=== PATIENT | female | born 1985 | race Asian ===

== ENCOUNTER → 2023-06-15 12:08 | Outpatient (REF) | payer OTHER, SELFPAY | LOC: CLAB 12:08 | PROVIDERS: ATTENDING PHYSICIAN Physician Assistant Medical | DX: R30.0 Dysuria (principal) | CPT/HCPCS: 87086 ==

== ENCOUNTER → 2023-07-07 05:43 | Day surgery (SDC) | payer OTHER, SELFPAY ==
[2023-07-07] VITALS (21 sets, daily range): BP systolic 76–112; BP diastolic 45–68; BMI 25.1
[2023-07-07 02:00] LABS: % Basophils 0.2 % (0-2); % Eosinophils 0.3 % (0-6); % Immature Granulocytes 0.4 % (0-0.5); % Lymphocytes 8.5 % (20.5-51.1); % Monocytes 3.5 % (1.7-9.3); % Neutrophils 87.1 % (42.2-75.2); Absolute Eosinophils 0.1 10^3/uL (0-0.7); Absolute Immature Granulocytes 0.1 10^3/uL (0-0.05); Absolute Lymphocytes 1.5 10^3/uL (1.2-3.4); Absolute Monocytes 0.6 10^3/uL (0.1-0.6); Absolute Neutrophils 14.9 10^3/uL (1.4-6.5); Hematocrit 29.8 % (37.0-47.0); Hemoglobin 9.8 g/dL (12.0-16.0); Mean Corp Hgb Conc. 32.9 g/dL (33.0-37.0); Mean Corpuscular Hgb 20.6 pg (27.0-31.0); Mean Corpuscular Volume 62.6 fL (81.0-99.0); Mean Platelet Volume 10.9 fL (7.4-10.4); Nucleated Red Blood Cells % 0 %; Platelet Count 267 10^3/uL (130-400); Red Blood Cell Count 4.76 10^6/uL (4.20-5.40); Red Cell Dist. Width 15.5 % (11.5-14.5); White Blood Cell Count 17.1 10^3/uL (4.8-10.8)
[2023-07-07] MEDS: NSS 500 IV (02:03)
[2023-07-07] MEDS: ZOFRAN 4 MG IV (02:03)
[2023-07-07 02:12] LABS: ALT (SGPT) 17 U/L (0-35); AST (SGOT) 21 U/L (14-36); Albumin 4.3 g/dl (3.5-5.0); Alkaline Phosphatase 66 U/L (38-126); Blood Urea Nitrogen 15 mg/dl (7-17); Calcium 9.3 mg/dl (8.4-10.2); Carbon Dioxide 18 mmol/L (22-30); Chloride 106 mmol/L (98-107); Estimated Creatinine Clearance 85 ml/min; Glucose 127 mg/dl (70-99); Potassium 4.3 mmol/L (3.5-5.1); Sodium 133 mmol/L (135-145); Total Bilirubin 0.4 mg/dl (0.2-1.3); Total Protein 7.1 g/dl (6.3-8.2); eGFR > 60.00
--- NOTE | 2023-07-07 02:28 | ED.GENMED ---
History of Present Illness
General
Chief Complaint: Problems
Source: patient
Exam Limitations: none
Time Seen by Provider: 07/07/23 01:44
Nursing documentation reviewed up to this point in time: agreed with
Travel History
Have you had any contact with someone who has COVID-19?: No
Do you have any symptoms of coronavirus? Fever > 100 degrees, chills, cough, shortness of breath, sore throat, loss of taste or smell, muscle aches, or headache?: No
History of Present Illness
History of Present Illness:
Patient, G3, P1, presents to ED secondary to persistent vaginal bleeding, after receiving Cytotec pill this afternoon after recent ultrasound revealed stillborn baby with gestational age of 6 weeks. Patient had spontaneous miscarriage 4 months
prior. An approximately 2 hours after taking a pill, patient started to have severe abdominal cramping along with passage of clots along with bright red blood. Patient was advised to consider coming to ED by her OB physician, if her bleeding was
severe. As she stood up to come to ED, she felt lightheaded and passed out for couple minutes. Denies injuries, as she was assisted by her immediately. Patient also reports shortness of breath at home, which now has resolved. Patient
does have history of thalassemia.
Past History
Past History
ED Past Medical History: None; Negative Asthma, HTN, Hypercholesterolemia or NIDDM
ED Past Surgical History: None
Social History
Tobacco: Non-smoker
Alcohol: None
Personal:
Living: with family
Review of Systems
Review of Systems
Allergies reviewed?: Yes
All Other Systems: ROS reviewed and negative except as documented in HPI and ROS
Constitutional: Reports no symptoms
EENT: Reports no symptoms
Respiratory: Reports no symptoms
Cardiac: Reports syncope
ABD/GI: Reports abdominal pain and nausea
: Reports bleeding
Musculoskeletal: Reports no symptoms
Skin: Reports no symptoms
Neurological: Reports dizzy
Phy Exam
Physical Exam
Physical Exam:
Physical Exam
General: moderate distress, not acutely ill. afebrile
Head: nc/at. eomi
Neck: supple. no meningeal signs.
Heart: s1/s2 regular rate and rhythm, no murmur. equal radial pulses.
Lungs: no acute respiratory distress. clear bilaterally
Abdomen: normal bowel sounds. diffuse mild tenderness to palpation, without distention.
: (MARITZA Martinez, at bedside): large blood clots noted and removed with forcep
Neuro: alert and oriented. no focal neurological deficits
Skin: no rash
Psychiatric: well kept. interactive and cooperative
Extremities: no edema. no calf tenderness.
Course
Orders/Labs/Results
Orders:
Orders
07/07/23 01:36
Type+Screen Urgent
Complete Blood Count/With Diff Urgent
Comprehensive Metabolic Panel Urgent
07/07/23 01:57
0.9% Sodium Chloride 500 ml [Nss] 500 ml IV BOLUS
Ondansetron Injectable [Zofran] 4 mg IV NOW STA
07/07/23 02:48
Morphine Sulfate 2 mg IV NOW STA
07/07/23 03:44
Hemoglobin Urgent
Comment: recheck
07/07/23 04:03
Fentanyl Citrate/Pf [Sublimaze] 50 mcg IV NOW STA
07/07/23 04:41
* Blood Bank Products Urgent
Blood Bank Products: *Packed RBC Leuko(PRBC's)
Quantity: 1
Transfuse Today: Yes
Reason: Bleeding
IV Insert/Care/Rem.- Treatment PRN
07/07/23 05:07
HYDROmorphone [Dilaudid] 0.25 mg IV PACU-Q5MPRN PRN
HYDROmorphone [Dilaudid] 0.5 mg IV PACU-Q5MPRN PRN
Meperidine [Demerol] 12.5 mg IV PACU-Q5MPRN PRN
Ondansetron Injectable [Zofran] 4 mg IV PACU-ONCEPRN PRN
Prochlorperazine [Compazine] 5 mg IV PACU-ONCEPRN PRN
Notify MD As Directed
Notify physician if: for SDS patients with known or suspected sleep obstructive sleep apnea, monitor in the
PACU.
Notify MD for any apneic/desaturation episodes
O2 Therapy [RESP] Urgent
Titrate/Wean O2 to maintain O2 sat greater than (%): 92
Special Instructions: -Provide supplemental oxygen to achieve O2 sat of 92% or greater.
-After 15 min, may wean O2 and discontinue if patient is able to maintain O2 sat of 92%
or greater during recovery period.
If patient is a discharge home, without oxygen therapy, notify anestheiologist if
unable to maintain O2 SAT of 92% or greater on room air for MD clearance.
07/07/23 05:15
Normosol (Mult Electrolytes) [Normosol-R] 1,000 ml IV PER PROTOCOL
07/07/23 05:27
Dexamethasone Sod Phosphate [Decadron] 20 mg .ROUTE .STK-MED ONE
Fentanyl Citrate/Pf [Sublimaze] 100 mcg .ROUTE .STK-MED ONE
Lidocaine HCl/Pf [Xylocaine-Mpf 1% Vial] 50 mg .ROUTE .STK-MED ONE
Midazolam HCl [Versed] 2 mg .ROUTE .STK-MED ONE
Ondansetron Injectable [Zofran] 4 mg .ROUTE .STK-MED ONE
Propofol [Diprivan] 20 ml .ROUTE .STK-MED
07/07/23 06:00
Flush (0.9% Sodium Chloride) [Flush (Nss)] See Dose Instructions IV PER PROTOCOL
Abnormal Lab Results
07/07/23 07/07/23
01:36 03:44
WBC 17.1 H 10^3/uL
(4.8-10.8)
Hgb 9.8 L g/dL 7.8 L D g/dL
(12.0-16.0) (12.0-16.0)
Hct 29.8 L %
(37.0-47.0)
MCV 62.6 L fL
(81.0-99.0)
MCH 20.6 L pg
(27.0-31.0)
MCHC 32.9 L g/dL
(33.0-37.0)
RDW 15.5 H %
(11.5-14.5)
MPV 10.9 H fL
(7.4-10.4)
Abs Immat Gran (auto) 0.1 H 10^3/uL
(0-0.05)
Absolute Neuts (auto) 14.9 H 10^3/uL
(1.4-6.5)
Neutrophils % 87.1 H %
(42.2-75.2)
Lymphocytes % 8.5 L %
(20.5-51.1)
Sodium 133 L mmol/L
(135-145)
Carbon Dioxide 18 L mmol/L
(22-30)
Glucose 127 H mg/dl
(70-99)
Crossmatch IS Only See Detail
07/07/23 03:44
07/07/23 01:36
Vital Signs
Initial and Last Documented VS:
Initial Vital Signs
Temp Pulse Resp BP Pulse Ox
99.0 F 58 20 103/58 100
07/07/23 01:33 07/07/23 01:33 07/07/23 01:33 07/07/23 01:33 07/07/23 01:33
Last Documented Vital Signs
Temp Pulse Resp BP Pulse Ox
98.3 F 78 16 105/68 99
07/07/23 05:25 07/07/23 05:25 07/07/23 05:25 07/07/23 05:25 07/07/23 05:25
Information
Weeks gestation: Weeks:
Location: N/A
MDM/Problems Addressed
MDM/Problems Addressed:
H/H noted, including drop 2 g Hb when repeated. IVF bolus given due to hypotension, with improvement.
Pt evaluated by Dr. Jamil (human resource internship) - recommends blood transfusion due to continual bleeding. Will proceed to OR.
Blood transfusion consent on the chart.
*Critical Care Note
Total Time (30-74mins, 75-104mins- exclusive of procedures): Not Applicable
ED Attending Note
-
Portions of this chart may have been created with voice recognition software.� Occasional wrong word or��sound alike� substitutions may have occurred due to the inherent limitations of voice recognition software.
Discharge Plan
Departure
Patient Disposition: OR
Date of Disposition: 07/07/23
Time of Disposition: 04:46
Admit to: OR
Presentation/result/management discussed w/ accepting MD/DO:
Discharge Problem:
Vaginal bleeding
Interventions
Interventions:
*Risk Screen - Suicide Last Done: 07/07/23 01:10
*General Assessment Last Done: 07/07/23 01:19
*Neglect/Abuse Screening Last Done: 07/07/23 01:10
ED- Fall Risk Assessment Last Done: 07/07/23 01:19
*ED COVID-19 Vaccine History Last Done: 07/07/23 01:09
*Nursing Disposition Last Done: 07/07/23 05:32
ED-Female Genitourinary Assessment Last Done: 07/07/23 01:19
Discharge Date and Time
Discharge Date/Time: 07/07/23 05:33
[2023-07-07] MEDS: MORPHINE SULFATE 2 MG IV (02:51)
[2023-07-07 03:57] LABS: Hemoglobin 7.8 g/dL (12.0-16.0)
[2023-07-07] MEDS: SUBLIMAZE 50 MCG IV (04:08)
--- NOTE | 2023-07-07 07:07 | W.IMMPOSTOP ---
Surgical Immed Post Op Note
-
Primary Surgeon: Patti Jamil DO
Assisting Surgeon: n/a
Pre-op Diagnosis: Incomplete ab/miscarriage; hemorrhage/anemia
Post-op Diagnosis: same
Procedure Performed: Dilation and evacuation
Anesthesia Type: general LMA Dr. Francis
Specimen / Cultures: products of conception
Estimated Blood Loss: 25 ml
Preop Abx: Ancef IV 2 g
Complications: none
Operative Findings: Tissue noted at cervical os-removed. Uterus sounded to 10cm. POC seen upon suction
Counts correct times 2.
Stable to recovery
Blood type AB pos
== END ==
LOC: EMR 01:02 → PACU 05:43
PROVIDERS: ATTENDING PHYSICIAN Obstetrics & Gynecology; EMERGENCY PHYSICIAN Emergency Medicine; FAMILY PHYSICIAN Family Medicine
DX: O03.4 Incomplete spontaneous abortion without complication (principal); Z3A.01 Less than 8 weeks gestation of pregnancy
CPT/HCPCS: 59812; 88305; 36430; 80053; 85018; 85025; 86850; 86900; 86901; 86920; 96361; 96374; 96375; 99285; P9016

== ENCOUNTER 2023-07-16 15:40 | Emergency (ER) | payer OTHER, SELFPAY ==
[2023-07-16 15:42] VITALS: BP 119/71
[2023-07-16 16:02] LABS: % Basophils 0.5 % (0-2); % Eosinophils 0.8 % (0-6); % Lymphocytes 19.5 % (20.5-51.1); % Monocytes 6.5 % (1.7-9.3); % Neutrophils 70.7 % (42.2-75.2); Absolute Basophils 0.1 10^3/uL (0-0.2); Absolute Eosinophils 0.1 10^3/uL (0-0.7); Absolute Immature Granulocytes 0.2 10^3/uL (0-0.05); Absolute Lymphocytes 1.9 10^3/uL (1.2-3.4); Absolute Monocytes 0.7 10^3/uL (0.1-0.6); Absolute Neutrophils 7.1 10^3/uL (1.4-6.5); Hematocrit 28.1 % (37.0-47.0); Hemoglobin 9.3 g/dL (12.0-16.0); Mean Corp Hgb Conc. 33.1 g/dL (33.0-37.0); Mean Corpuscular Hgb 22.2 pg (27.0-31.0); Mean Corpuscular Volume 67.1 fL (81.0-99.0); Mean Platelet Volume 10.4 fL (7.4-10.4); Nucleated Red Blood Cells % 0.9 %; Platelet Count 309 10^3/uL (130-400); Red Blood Cell Count 4.19 10^6/uL (4.20-5.40); Red Cell Dist. Width 20.5 % (11.5-14.5)
[2023-07-16 16:04] LABS: Urine Albumin Negative (Neg - Trace); Urine Bilirubin Negative (Negative); Urine Character Clear (Clear); Urine Color Yellow; Urine Glucose Negative (Negative); Urine Ketone Negative (Negative); Urine Leukocyte Negative (Negative); Urine Nitrite Negative (Negative); Urine Occult Blood 1+ (Negative); Urine Specific Gravity 1.015 (<1.030); Urine Urobilinogen 2+ (Neg - 1+)
[2023-07-16 16:11] LABS: Urine White Cell None Seen /HPF (0-5)
--- NOTE | 2023-07-16 16:12 | ED.GENMED ---
History of Present Illness
General
Chief Complaint: Dizziness
Source: patient
Time Seen by Provider: 07/16/23 16:07
Travel History
Have you had any contact with someone who has COVID-19?: No
Do you have any symptoms of coronavirus? Fever > 100 degrees, chills, cough, shortness of breath, sore throat, loss of taste or smell, muscle aches, or headache?: No
History of Present Illness
History of Present Illness:
38-year-old female presents to the emergency room complaining of feeling dizzy. Patient had a D&C performed last week due to an incomplete . She had significant bleeding at the time and required a unit of blood. She followed up with
[facility]oul[facility]'s office today and was sent to the emergency room given the symptoms with the suspicion that she was still quite anemic. 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
Past History
Past History
ED Past Medical History: None; Negative Asthma, HTN, Hypercholesterolemia or NIDDM
ED Past Surgical History: None
Social History
Tobacco: Non-smoker
Alcohol: None
Personal:
Living: with family
Phy Exam
Physical Exam
Physical Exam:
General: Awake, Alert, Oriented X3. No acute distress.
Vitals: unremarkable
Head: Atraumatic
Eyes: Pupils equal, EOMI
Throat: Airway intact, no exudates
Neck: Trachea midline
Lungs: Clear and equal b/l
Heart: Regular rate, no murmurs
Abd: Soft, minimal suprapubic tenderness, No pulsatile mass
Neuro: Nonfocal
Skin: Warm, dry, no rash
Extremities: pulses equal b/l, no edema
Course
Orders/Labs/Results
Orders:
Orders
07/16/23 15:54
Type+Screen Urgent
Complete Blood Count/With Diff Urgent
Comprehensive Metabolic Panel Urgent
Urinalysis Reflex To Culture Urgent
Date Specimen was Collected: 07/16/23
Time Specimen was Collected: 15:44
Urine Microscopic Reflex Cult Urgent
Abnormal Lab Results
07/16/23
15:54
RBC 4.19 L 10^6/uL
(4.20-5.40)
Hgb 9.3 L g/dL
(12.0-16.0)
Hct 28.1 L %
(37.0-47.0)
MCV 67.1 L fL
(81.0-99.0)
MCH 22.2 L pg
(27.0-31.0)
RDW 20.5 H %
(11.5-14.5)
Abs Immat Gran (auto) 0.2 H 10^3/uL
(0-0.05)
Absolute Neuts (auto) 7.1 H 10^3/uL
(1.4-6.5)
Absolute Monos (auto) 0.7 H 10^3/uL
(0.1-0.6)
Immature Gran % 2.0 H %
(0-0.5)
Lymphocytes % 19.5 L %
(20.5-51.1)
Carbon Dioxide 21 L mmol/L
(22-30)
BUN 21 H mg/dl
(7-17)
Total Bilirubin 2.0 H mg/dl
(0.2-1.3)
AST 84 H U/L
(14-36)
ALT 83 H U/L
(0-35)
Ur Occult Blood Reflex 1+ A
(Negative)
Urine Urobilinogen 2+ A
(Neg - 1+)
Urine RBC 3-6 A /HPF
(0-2)
07/16/23 15:54
07/16/23 15:54
Vital Signs
Initial and Last Documented VS:
Initial Vital Signs
Temp Pulse Resp BP Pulse Ox
98.6 F 83 18 119/71 99
07/16/23 15:42 07/16/23 15:42 07/16/23 15:42 07/16/23 15:42 07/16/23 15:42
Last Documented Vital Signs
Temp Pulse Resp BP Pulse Ox
98.4 F 78 18 111/47 98
07/16/23 17:24 07/16/23 17:24 07/16/23 17:24 07/16/23 17:24 07/16/23 17:24
MDM/Problems Addressed
Differential Diagnosis Includes:
Anemia, dehydration, electrode abnormality
MDM/Problems Addressed:
Patient's labs show a hemoglobin of 9.3. Her BUN is mildly elevated at 21 with a normal creatinine. LFTs are mildly elevated at 84 and 83. Suspect patient is still recovering from her procedure and bleeding surrounding the spontaneous .
Patient does not require a transfusion given that her hemoglobin is well above 7. Patient is disappointed that she is not getting a blood transfusion because she thought it would help her feel better quickly. She is very frustrated that she does
not feel well and she has a trip planned to [place] tomorrow. Recommend she follow-up with hematology as an outpatient to see if she is a candidate for IV iron infusion. She was disappointed that hematology could not see her here in the emergency
room and arrange the iron infusion right away.
*Pulse Oximetry
Patient hypoxic: no
*Critical Care Note
Total Time (30-74mins, 75-104mins- exclusive of procedures): Not Applicable
ED Attending Note
-
Portions of this chart may have been created with voice recognition software.� Occasional wrong word or��sound alike� substitutions may have occurred due to the inherent limitations of voice recognition software.
Discharge Plan
Departure
Patient Disposition: Home (Routine Discharge)
Date of Disposition: 07/16/23
Time of Disposition: 17:14
Patient with high blood pressure during this ER visit?: No
Condition: Good
Discharge Problem:
Dizziness, Anemia
Instructions: Anemia caused by low iron, Dizziness
Prescriptions:
No Action
sulfamethoxazole-trimethoprim 1 TABLET tablet
1 tab PO BID Qty: 5 0RF
Referrals:
Ion Guevara, [Active] -
Dimas Grossman DO [Family Provider] -
Activity Restrictions/Additional Instructions:
Continue taking iron pills. Call Dr. Guevara's office for evaluation of your anemia and potential iron infusion.
Interventions
Interventions:
*Risk Screen - Suicide Last Done: 07/16/23 15:42
*General Assessment Last Done: 07/16/23 15:42
*Neglect/Abuse Screening Last Done: 07/16/23 15:42
ED- Fall Risk Assessment Last Done: 07/16/23 17:27
*ED COVID-19 Vaccine History Last Done: 07/16/23 15:42
*Nursing Disposition Last Done: 07/16/23 17:27
ED- Neurological Assessment Last Done: 07/16/23 17:27
ED- Cardiac Assessment Last Done: 07/16/23 17:27
Discharge Date and Time
Discharge Date/Time: 07/16/23 17:28
Print Language: MAORI
[2023-07-16 16:26] LABS: ALT (SGPT) 83 U/L (0-35); AST (SGOT) 84 U/L (14-36); Albumin 4.7 g/dl (3.5-5.0); Alkaline Phosphatase 94 U/L (38-126); Blood Urea Nitrogen 21 mg/dl (7-17); Calcium 9.7 mg/dl (8.4-10.2); Carbon Dioxide 21 mmol/L (22-30); Chloride 105 mmol/L (98-107); Glucose 95 mg/dl (70-99); Potassium 4.5 mmol/L (3.5-5.1); Sodium 135 mmol/L (135-145); Total Protein 7.7 g/dl (6.3-8.2); eGFR > 60.00
[2023-07-16 17:24] VITALS: BP 111/47
== END 2023-07-16 17:28 | disposition home or self-care (01) ==
LOC: EMR 15:40
PROVIDERS: EMERGENCY PHYSICIAN Emergency Medicine; FAMILY PHYSICIAN Family Medicine
DX: R42 Dizziness and giddiness (principal); D64.9 Anemia, unspecified
CPT/HCPCS: 99283; 80053; 81003; 81015; 85025; 86850; 86900; 86901

== ENCOUNTER → 2024-01-29 08:37 | Outpatient (REF) | payer BC, SELFPAY | LOC: WDC 08:37 | PROVIDERS: ATTENDING PHYSICIAN Family Medicine | DX: Z00.00 Encounter for general adult medical examination without abnormal findings (principal); Z12.31 Encounter for screening mammogram for malignant neoplasm of breast | CPT/HCPCS: 77063; 77067 ==

== ENCOUNTER → 2024-02-16 08:57 | Outpatient (REF) | payer BC, SELFPAY | LOC: HWRAD 08:57 | PROVIDERS: ATTENDING PHYSICIAN Physician Assistant Medical; FAMILY PHYSICIAN Family Medicine | DX: N39.0 Urinary tract infection, site not specified (principal); R31.0 Gross hematuria | CPT/HCPCS: 74178; Q9967 ==

== ENCOUNTER → 2024-03-11 11:39 | Outpatient (REF) | payer BC, SELFPAY | LOC: RCS 11:39 | PROVIDERS: ATTENDING PHYSICIAN Family Medicine | DX: R07.9 Chest pain, unspecified (principal) | CPT/HCPCS: 93005 ==

== ENCOUNTER → 2024-04-11 08:40 | Outpatient (REF) | payer BC, SELFPAY | LOC: HWRAD 08:40 | PROVIDERS: FAMILY PHYSICIAN Family Medicine | DX: D25.9 Leiomyoma of uterus, unspecified (principal) | CPT/HCPCS: 76830; 76856 ==

== ENCOUNTER → 2024-06-03 09:41 | Outpatient (REF) | payer BC, SELFPAY | LOC: RCS 09:41 | PROVIDERS: ATTENDING PHYSICIAN Internal Medicine Cardiovascular Disease; FAMILY PHYSICIAN Family Medicine | DX: R07.2 Precordial pain (principal) | CPT/HCPCS: 93017; 93350 ==

== ENCOUNTER → 2024-06-10 09:07 | Outpatient (REF) | payer BC, SELFPAY | LOC: RCS 09:07 | PROVIDERS: ATTENDING PHYSICIAN Internal Medicine Cardiovascular Disease; FAMILY PHYSICIAN Family Medicine | DX: R07.2 Precordial pain (principal); R94.31 Abnormal electrocardiogram [ECG] [EKG] | CPT/HCPCS: 93306 ==

== ENCOUNTER → 2025-02-03 09:01 | Outpatient (REF) | payer BC, SELFPAY | LOC: WDC 09:01 | PROVIDERS: ATTENDING PHYSICIAN Family Medicine | DX: Z12.31 Encounter for screening mammogram for malignant neoplasm of breast (principal) | CPT/HCPCS: 77063; 77067 ==